=== PATIENT | female | born 1930 | race Caucasian/White ===

== ENCOUNTER 2016-10-28 20:27 | Inpatient (IN) | payer MEDICARE ==
[~2016-10-28] VITALS: Ht 152.4 cm; Wt 56.6 kg
[2016-10-28] MEDS ORDERED: SODIUM CHLORIDE FLUSH 10ML SYR IVF ONE (22:00)
[2016-10-28] MEDS ORDERED: PLEASE ENTER ALLERGIES MC SCH ×2 (22:00)
[2016-10-28 22:10] LABS: HEMATOCRIT 48.9 % (34.6-47.8); HEMOGLOBIN 16.2 g/dL (11.7-16.4); WHITE BLOOD COUNT 9.7 x10^3/uL (3.4-10)
[2016-10-28 22:20] LABS: BLOOD UREA NITROGEN 22 mg/dL (7-18)
[2016-10-28 22:23] LABS: ASPARTATE AMINO TRANSFERASE 184 U/L (15-37)
[2016-10-28] MEDS ORDERED: PIPERACILLIN/TAZO/PMX 3.375GM 50 ML ONE (22:57)
[2016-10-28] MEDS ORDERED: ALBUTEROL SULFATE 2.5 MG/3 ML NPPB ONE (23:00)
[2016-10-28] MEDS ORDERED: PIPERACILLIN/TAZO/PMX 3.375GM 50 ML IV ONE (23:00)
[2016-10-28] MEDS ORDERED: ALBUTEROL/IPRATROPIUM 2.5MG/0.5MG, 3 ML ONE (23:10)
[2016-10-28] MEDS ORDERED: SODIUM CHLORIDE 0.9% 1,000 ML IV SCH (23:36)
[2016-10-29] MEDS ORDERED: POLYETHYLENE GLYCOL 17 GM PACKET PO PRN
[2016-10-29] MEDS ORDERED: morphine SULFATE 10 MG/ML, 1ML IVPush PRN
[2016-10-29] MEDS ORDERED: ENOXAPARIN 40 MG/0.4 ML SQ SCH
[2016-10-29] MEDS ORDERED: ONDANSETRON 2MG/ML, 2ML IVPush PRN
[2016-10-29] MEDS ORDERED: DOCUSATE 100 MG CAPSULE PO PRN
[2016-10-29] MEDS ORDERED: HYDROcodone/APAP 5/325 TABLET PO PRN
[2016-10-29] MEDS ORDERED: GUAIFENESIN/DM 200-20MG, 10ML UDC PO PRN
[2016-10-29 01:00] VITALS: BP 168/79
[2016-10-29] MEDS ORDERED: MULT-257 PO (01:58)
[2016-10-29] MEDS ORDERED: ASPI-496 PO (01:58)
[2016-10-29] MEDS: INSULIN REGULAR 100 UNITS/ML, 3ML VIAL SQ-INSULIN SCH ×5 (04:09→21:40)
[2016-10-29] MEDS: PIPERACILLIN/TAZO/PMX 3.375GM 50 ML IV SCH ×2 (05:29)
[2016-10-29 07:14] LABS: HEMATOCRIT 45.7 % (34.6-47.8); WHITE BLOOD COUNT 15.4 x10^3/uL (3.4-10)
[2016-10-29 07:24] LABS: BLOOD UREA NITROGEN 18 mg/dL (7-18)
[2016-10-29 07:43] VITALS: BP 121/69
[2016-10-29] MEDS: ACETAMINOPHEN 325 MG TABLET PO PRN ×2 (08:56→14:04)
[2016-10-29] MEDS: SENNA/DOCUSATE TABLET PO SCH (08:56)
[2016-10-29] MEDS: AMPICILLIN/SULBACTAM 3 GM in SODIUM CHLORIDE 0.9% 100 ML IV SCH ×3 (10:40→23:33)
[2016-10-29 13:41] VITALS: BP 102/61
[2016-10-29] MEDS ORDERED: ASPIRIN 81 MG TABLET EC PO ONE (19:30)
[2016-10-29] MEDS ORDERED: METOPROLOL SUCCINATE 25 MG TAB.ER.24H PO ONE (19:30)
[2016-10-29 19:45] VITALS: BP 100/58
[2016-10-29] MEDS: SODIUM CHLORIDE 0.9% 1,000 ML IV SCH (19:56)
[2016-10-29] MEDS ORDERED: METOPROLOL TARTRATE 25 MG TABLET PO ONE (20:00)
[2016-10-29 20:40] VITALS: BP 114/64
[2016-10-29] MEDS: METOPROLOL TARTRATE 25 MG TABLET PO SCH (21:29)
[2016-10-30] MEDS: ENOXAPARIN 30 MG/0.3 ML SQ SCH (01:13)
[2016-10-30 01:15] VITALS: BP 112/65
[2016-10-30 05:05] LABS: HEMATOCRIT 41.7 % (34.6-47.8); HEMOGLOBIN 13.8 g/dL (11.7-16.4); WHITE BLOOD COUNT 9.4 x10^3/uL (3.4-10)
[2016-10-30 05:11] LABS: BLOOD UREA NITROGEN 19 mg/dL (7-18)
[2016-10-30 05:42] VITALS: BP 146/73
[2016-10-30] MEDS: AMPICILLIN/SULBACTAM 3 GM in SODIUM CHLORIDE 0.9% 100 ML IV SCH ×3 (05:43→17:09)
[2016-10-30] MEDS: METOPROLOL TARTRATE 25 MG TABLET PO SCH ×2 (05:44→17:12)
[2016-10-30 06:52] VITALS: BP 123/65
[2016-10-30] MEDS: INSULIN REGULAR 100 UNITS/ML, 3ML VIAL SQ-INSULIN SCH ×4 (07:00→21:00)
[2016-10-30] MEDS: SENNA/DOCUSATE TABLET PO SCH (09:00)
[2016-10-30] MEDS: SODIUM CHLORIDE 0.9% 1,000 ML IV SCH ×2 (09:11→22:06)
[2016-10-30] MEDS ORDERED: POTASSIUM CHLORIDE 20 MEQ TAB.ER.PRT PO ONE (13:00)
[2016-10-30 14:00] VITALS: BP 146/72
[2016-10-30] MEDS ORDERED: GUAIFENESIN/DM 200-20MG, 10ML UDC PO PRN (16:00)
[2016-10-30] MEDS ORDERED: morphine SULFATE 10 MG/ML, 1ML IVPush PRN (16:00)
[2016-10-30] MEDS ORDERED: ONDANSETRON 2MG/ML, 2ML IVPush PRN (16:00)
[2016-10-30] MEDS ORDERED: HYDROcodone/APAP 5/325 TABLET PO PRN (16:00)
[2016-10-30] MEDS ORDERED: POLYETHYLENE GLYCOL 17 GM PACKET PO PRN (16:00)
[2016-10-30] MEDS ORDERED: DOCUSATE 100 MG CAPSULE PO PRN (16:00)
[2016-10-30 19:35] VITALS: BP 152/85
[2016-10-31] MEDS: AMPICILLIN/SULBACTAM 3 GM in SODIUM CHLORIDE 0.9% 100 ML IV SCH ×3 (00:13→11:29)
[2016-10-31] MEDS: ENOXAPARIN 30 MG/0.3 ML SQ SCH (00:15)
[2016-10-31 01:28] VITALS: BP 166/82
[2016-10-31 05:13] LABS: BLOOD UREA NITROGEN 9 mg/dL (7-18)
[2016-10-31 05:23] VITALS: BP 171/80
[2016-10-31 05:25] LABS: ASPARTATE AMINO TRANSFERASE 27 U/L (15-37)
[2016-10-31] MEDS: METOPROLOL TARTRATE 25 MG TABLET PO SCH ×2 (05:57→16:56)
[2016-10-31] MEDS: ACETAMINOPHEN 325 MG TABLET PO PRN ×2 (06:07→15:38)
[2016-10-31 06:08] VITALS: BP 155/84
[2016-10-31] MEDS: INSULIN REGULAR 100 UNITS/ML, 3ML VIAL SQ-INSULIN SCH ×4 (07:00→21:00)
[2016-10-31 07:30] VITALS: BP 122/65
[2016-10-31] MEDS: SENNA/DOCUSATE TABLET PO SCH (09:00)
[2016-10-31] MEDS: SODIUM CHLORIDE 0.9% 1,000 ML IV SCH (12:37)
[2016-10-31 12:40] VITALS: BP 179/83
[2016-10-31] MEDS: AMOXICILLIN/CLAV 875-125MG TABLET PO SCH (16:56)
[2016-10-31 20:00] VITALS: BP 138/76
[2016-11-01] MEDS: ENOXAPARIN 30 MG/0.3 ML SQ SCH (01:02)
[2016-11-01 03:02] VITALS: BP 129/81
[2016-11-01 05:13] LABS: HEMATOCRIT 43.3 % (34.6-47.8); HEMOGLOBIN 14.3 g/dL (11.7-16.4); WHITE BLOOD COUNT 5.7 x10^3/uL (3.4-10)
[2016-11-01 05:19] LABS: BLOOD UREA NITROGEN 9 mg/dL (7-18)
[2016-11-01] MEDS: AMOXICILLIN/CLAV 875-125MG TABLET PO SCH (05:47)
[2016-11-01] MEDS: METOPROLOL TARTRATE 25 MG TABLET PO SCH (05:49)
[2016-11-01] MEDS: INSULIN REGULAR 100 UNITS/ML, 3ML VIAL SQ-INSULIN SCH ×2 (07:00→11:24)
[2016-11-01 08:11] VITALS: BP 144/65
[2016-11-01] MEDS: SENNA/DOCUSATE TABLET PO SCH (09:00)
[2016-11-01 13:49] VITALS: BP 105/62
[2016-11-01] MEDS ORDERED: METO25TA35 PO (15:14)
[2016-11-01] MEDS ORDERED: AMOX1TAB12 PO (15:14)
== END 2016-11-01 16:50 | disposition home health service (06) | DRG 177 ==
LOC: ED 23:20 → EDIP 23:30 → SUATTDRO 23:34 → 4NOR 10-29 00:34 → 4EST 10-29 20:21 → DCLOUNGE 11-01 16:35
PROVIDERS: ADMIT Family Medicine; ATTEND Family Medicine
DX: J69.0 Pneumonitis due to inhalation of food and vomit (principal); J96.21 Acute and chronic respiratory failure with hypoxia; F03.90 Unspecified dementia, unspecified severity, without behavioral disturbance, psychotic disturbance, mood disturbance, and anxiety; E87.1 Hypo-osmolality and hyponatremia; E11.65 Type 2 diabetes mellitus with hyperglycemia; I10 Essential (primary) hypertension; I25.10 Atherosclerotic heart disease of native coronary artery without angina pectoris; I08.0 Rheumatic disorders of both mitral and aortic valves; I48.91 Unspecified atrial fibrillation; Z83.3 Family history of diabetes mellitus; Z95.1 Presence of aortocoronary bypass graft; Z99.81 Dependence on supplemental oxygen; Z90.10 Acquired absence of unspecified breast and nipple; Z88.8 Allergy status to other drugs, medicaments and biological substances
CPT/HCPCS: 36415; 71020; 80048; 80053; 82962; 83605; 83735; 84443; 85025; 93005; 93306; 94640; 96365; J0295; J1650; J1815; J2543; J7613; 92523-GN; J7030